=== PATIENT | female | born 1940 | race Caucasian/White ===

== ENCOUNTER 2018-01-13 21:11 | Emergency (ER) | payer BC ==
--- NOTE | 2018-01-13 21:39 | PDOC ---
History of Present Illness - General History Source: Patient Exam Limitations: No Limitations - History of Present Illness Initial Comments: 01/13/18 22:00 The patient is a 77 year old female, with a significant past medical history of HTN and RA, who presents to the emergency department with, 2 days of nausea, vomiting, and urinary frequency. As per patient, every time she goes to micturate she immediately becomes nauseous and vomits. She reports 6 episodes of emesis today and approximately 3 episodes yesterday. She took Tylenol today, with minimal relief. She has similar symptoms in the past that she has been admitted to the hospital with an unknown diagnosis. She denies recent chills, headache or dizziness. She denies recent diarrhea or constipation. She denies recent dysuria, urgency or hematuria. She denies recent chest pain or shortness of breath. Allergies: Morphine, codeine, azithromycin. Social history: Nonsmoker. Denies EtOH use and recreational drug use. <Lanny Vasquez - Last Filed: 01/13/18 22:08> <Rosa Crenshaw - Last Filed: 01/14/18 01:48> - General Chief Complaint: Nausea/Vomiting Stated Complaint: N/V/FREQUENT URINATION Time Seen by Provider: 01/13/18 21:26 Past History <Lanny Vasquez - Last Filed: 01/13/18 22:08> - Past Medical History Asthma: No Cardiac Disorders: Yes (MVP, LEFT BUBDLE BRANCH BLOCK) COPD: No Diabetes: No HTN: No Other medical history: ARTHRITIS - Suicide/Smoking/Psychosocial Hx Smoking Status: No Smoking History: Never smoked Number of Cigarettes Smoked Daily: 0 Hx Alcohol Use: No Drug/Substance Use Hx: No Substance Use Type: None <Rosa Crenshaw - Last Filed: 01/14/18 01:48> - Past Medical History Allergies/Adverse Reactions: Allergies Allergy/AdvReac Type Severity Reaction Status Date / Time morphine Allergy Verified 05/26/15 12:41 CODIENE Allergy Uncoded 05/26/15 12:41 Home Medications: Ambulatory Orders Diltiazem Cd [Cardizem Cd -] 240 mg PO DAILY 05/26/15 Methotrexate [Mexate -] 7.5 mg PO Q7D 05/26/15 predniSONE [Deltasone -] 5 mg PO DAILY 05/26/15 Levofloxacin [Levaquin] 500 mg PO DAILY #5 tablet 01/13/18 Levofloxacin [Levaquin] 500 mg PO DAILY #5 tablet 01/13/18 Ondansetron [Zofran Odt -] 4 mg SL BID #14 od.tablet 01/13/18 Review of Systems - Review of Systems Able to Perform ROS?: Yes Comments:: 01/13/18 22:08 GENERAL/CONSTITUTIONAL: No chills. No weakness. HEAD, EYES, EARS, NOSE AND THROAT: No change in vision. No ear pain or discharge. No sore throat. CARDIOVASCULAR: No chest pain or shortness of breath. RESPIRATORY: No cough, wheezing, or hemoptysis. GASTROINTESTINAL: No nausea, vomiting, diarrhea or constipation. GENITOURINARY: No dysuria, frequency, or change in urination. MUSCULOSKELETAL: No joint or muscle swelling or pain. No neck or back pain. SKIN: No rash NEUROLOGIC: No headache, vertigo, loss of consciousness, or change in strength/ sensation. ENDOCRINE: No increased thirst. No abnormal weight change. HEMATOLOGIC/LYMPHATIC: No anemia, easy bleeding, or history of blood clots. ALLERGIC/IMMUNOLOGIC: No hives or skin allergy. All Other Systems: Reviewed and Negative <Lanny Vasquez - Last Filed: 01/13/18 22:08> *Physical Exam - Vital Signs Last Vital Signs Temp Pulse Resp BP Pulse Ox 98.1 F 96 H 16 164/82 97 01/13/18 21:13 01/13/18 21:13 01/13/18 21:13 01/13/18 21:13 01/13/18 21:13 - Physical Exam Comments: 01/13/18 22:08 +GENERAL: Warm to touch. Awake, alert, and fully oriented, in no acute distress HEAD: No signs of trauma EYES: PERRLA, EOMI, sclera anicteric, conjunctiva clear ENT: Auricles normal inspection, hearing grossly normal, nares patent, oropharynx clear without exudates. Moist mucosa NECK: Normal ROM, supple, no lymphadenopathy, JVD, or masses LUNGS: Breath sounds equal, clear to auscultation bilaterally. No wheezes, and no crackles +HEART: Tachycardic. Regular rhythm, normal S1 and S2, no murmurs, rubs or gallops ABDOMEN: Soft, nontender, normoactive bowel sounds. No guarding, no rebound. No masses EXTREMITIES: Normal range of motion, no edema. No clubbing or cyanosis. No cords, erythema, or tenderness NEUROLOGICAL: Cranial nerves II through XII grossly intact. Normal speech, normal gait SKIN: Warm, Dry, normal turgor, no rashes or lesions noted. <Lanny Vasquez - Last Filed: 01/13/18 22:08> - Vital Signs Last Vital Signs Temp Pulse Resp BP Pulse Ox 98.1 F 96 H 16 164/82 97 01/13/18 21:13 01/13/18 21:13 01/13/18 21:13 01/13/18 21:13 01/13/18 21:13 <Rosa Crenshaw - Last Filed: 01/14/18 01:48> ED Treatment Course - ADDITIONAL ORDERS Additional order review: Laboratory Results 01/13/18 21:24 Urine Color Yellow Urine Appearance Clear Urine pH 5.5 Ur Specific Galliano >= 1.030 H Urine Protein 2+ H Urine Glucose (UA) Negative Urine Ketones 2+ H Urine Blood 2+ H Urine Nitrite Negative Urine Bilirubin 1+ H Urine Urobilinogen 0.2 Ur Leukocyte Esterase Negative <Lanny Vasquez - Last Filed: 01/13/18 22:08> - LABORATORY CBC & Chemistry Diagram: 01/13/18 22:00 01/13/18 22:00 <Rosa Crenshaw - Last Filed: 01/14/18 01:48> Medical Decision Making - Medical Decision Making 01/13/18 22:09 Pt has 2+ ketones in her urine. She will be hydrated. 01/13/18 22:10 Pt has urine 01/13/18 22:20 Pt has no WBC count. 01/13/18 23:32 Patient Name: TRISHA TIERNEY THIS IS A PRELIMINARY REPORT FROM [facility] DATE OF SERVICE: 2018-01-13 22:46:26 IMAGES: 192 EXAM: CT abdomen and pelvis without contrast HISTORY: UTI and vomiting COMPARISON: None. FINDINGS: Lung bases are clear. The visualized cardiac chambers are normal size and configuration. Normal unenhanced liver, gallbladder, pancreas, spleen, adrenal glands and kidneys. A small hiatal hernia is noted. The abdominal small and large bowel are normal. There is no aortic aneurysm. There is no significant retroperitoneal lymphadenopathy. The pelvic small and large bowel are normal. The appendix is normal. The uterus and adnexal structures are normal. Urinary bladder is unremarkable. There is no pelvic free fluid. No discrete pelvic lymphadenopathy is identified. IMPRESSION: No localizing signs for acute pathology 01/14/18 01:47 Pt is feeling better after hydration. She will be discharged home with levaquin for her UTI (clinically diagnosed, as pt has fewquency, urgency, and nausea, and dysuria) Pt will follow with her PMD. <Rosa Crenshaw - Last Filed: 01/14/18 01:48> *DC/Admit/Observation/Transfer - Attestations Scribe Attestion: 01/13/18 22:09 Documentation prepared by Lanny Vasquez, acting as medical insurance biller for Rosa Crenshaw MD. <Lanny Vasquez - Last Filed: 01/13/18 22:08> - Discharge Dispostion Decision to Admit order: No <Rosa Crenshaw - Last Filed: 01/14/18 01:48> Diagnosis at time of Disposition: UTI (urinary tract infection), Nausea, Dehydration - Discharge Dispostion Disposition: HOME Condition at time of disposition: Stable - Prescriptions Prescriptions: Levofloxacin [Levaquin] 500 mg PO DAILY #5 tablet Levofloxacin [Levaquin] 500 mg PO DAILY #5 tablet Ondansetron [Zofran Odt -] 4 mg SL BID #14 od.tablet - Referrals Referrals: ON STAFF,NOT [Primary Care Provider] - - Patient Instructions Printed Discharge Instructions: DI for Dehydration -- Adult, DI for Urinary Tract Infection (UTI), DI for Nausea -- Adult - Post Discharge Activity
[2018-01-13 21:45] VITALS: BP 164/82; PULSE 96; TEMP 98.1; BMI 25.7
[2018-01-13 21:51] LABS: PH,URINE 5.5 (4.5-8); URINE APPEARANCE Clear; URINE BILIRUBIN 1+ (NEGATIVE); URINE COLOR Yellow; URINE GLUCOSE (UA) Negative (NEGATIVE); URINE KETONE 2+ (NEGATIVE); URINE LEUK ESTERASE Negative (NEGATIVE); URINE NITRITE Negative (NEGATIVE); URINE UROBILINOGEN 0.2 (0.2-1.0)
[2018-01-13 21:52] LABS: URINE PROTEIN 2+ (NEGATIVE)
[2018-01-13] MEDS ORDERED: SODIUM CHLORIDE 0.9% 500 ML INFUS.BAG IV ONE (21:54)
[2018-01-13] MEDS ORDERED: ACETAMINOPHEN 1000 MG/100 ML VIAL (NON FORMULARY) IVPB ONE (21:55)
[2018-01-13] MEDS ORDERED: FAMOTIDINE 20 MG/50 ML IVPB 20 MG/50 ML MG IVPB ONE ×2 (21:58→22:00)
[2018-01-13] MEDS ORDERED: ACETAMINOPHEN INJECTION 100 ML IVPB ONE (21:58)
[2018-01-13 22:04] LABS: CALCIUM OXALATE CRYSTALS FEW /hpf (NONE SEEN); EPI CELLS FEW /HPF; URINE BACTERIA FEW /hpf (NEGATIVE); URINE WBC 0-2 (0-5)
[2018-01-13 22:16] LABS: BASO % 0.6 % (0-2.0); EOS % 0.2 % (0-4.5); HEMATOCRIT 42.9 % (32.4-45.2); HEMOGLOBIN 14.3 GM/dl (10.7-15.3); LYMPH % 13.6 % (8-40); MCH 31.3 pg (25.7-33.7); MCHC 33.2 g/dl (32.0-36.0); MEAN CELL VOLUME 94.2 fl (80-96); MEAN PLT VOLUME 7.4 fl (7.5-11.1); MONO % 6.3 % (3.8-10.2); NEUT % 79.3 % (42.8-82.8); PLATELET COUNT 337 K/MM3 (134-434); RBC 4.56 M/mm3 (3.60-5.2); RDW 13.3 % (11.6-15.6); WHITE BLOOD COUNT 7.7 K/mm3 (4.0-10.8)
[2018-01-13 22:33] LABS: ALK PHOS 79 U/L (32-92); ANION GAP 12 MMOL/L (8-16); BILIRUBIN,TOTAL 0.8 mg/dl (0.2-1.0); BLOOD UREA NITROGEN 17 mg/dl (7-18); CALCIUM 10.1 mg/dl (8.4-10.2); CHLORIDE 101 mmol/L (98-107); CO2 26 mmol/L (22-28); CREATININE 0.8 mg/dl (0.6-1.3); GLUCOSE,RANDOM 134 mg/dl (74-106); POTASSIUM 3.6 mmol/L (3.5-5.1); SGOT/AST 20 U/L (10-42); SGPT/ALT 17 U/L (10-40); SODIUM 139 mmol/L (136-145); TOT PROT 7.1 g/dl (6.4-8.3)
[2018-01-13] MEDS ORDERED: DEXTROSE 5%-NORMAL SALINE 500 ML IV ONE (22:41)
[2018-01-13] MEDS ORDERED: ONDANSETRON 4 MG/2 ML VIAL IVPB ONE (23:29)
[2018-01-13] MEDS ORDERED: ONDANSETRON 4 MG/2 ML VIAL ONE (23:33)
== END 2018-01-13 23:45 | disposition home or self-care (01) ==
LOC: FER 21:11
PROC: 3E033NZ Introduction of Analgesics, Hypnotics, Sedatives into Peripheral Vein, Percutaneous Approach (ICD-10-PCS; principal; 2018-01-13)
PROC: 3E033GC Introduction of Other Therapeutic Substance into Peripheral Vein, Percutaneous Approach (ICD-10-PCS; 2018-01-13)
PROC: 3E0337Z Introduction of Electrolytic and Water Balance Substance into Peripheral Vein, Percutaneous Approach (ICD-10-PCS; 2018-01-13)
DX: N39.0 Urinary tract infection, site not specified (principal); R11.0 Nausea; E86.0 Dehydration; I10 Essential (primary) hypertension; M06.9 Rheumatoid arthritis, unspecified
CPT/HCPCS: 36415; 74176; 80053; 81003; 81015; 85025; 87086; 96361; 96365; 96367; 96375; 99283-25; J0131

== ENCOUNTER 2018-11-27 14:32 | Emergency (ER) | payer BC ==
[2018-11-27 14:38] VITALS: TEMP 98.2; BMI 23.9
[2018-11-27] MEDS ORDERED: ONDANSETRON 4 MG/2 ML VIAL IVPUSH ONE (15:05)
[2018-11-27] MEDS ORDERED: ONDANSETRON 4 MG/2 ML VIAL ONE (15:13)
[2018-11-27] MEDS ORDERED: SODIUM CHLORIDE 0.9% 500 ML INFUS.BAG IV ONE (15:14)
--- NOTE | 2018-11-27 15:15 | PDOC ---
History of Present Illness - General Chief Complaint: Blood Pressure Problem Stated Complaint: HTN Time Seen by Provider: 11/27/18 14:42 History Source: Patient - History of Present Illness Initial Comments: 11/27/18 15:15 78F with pmh of HTN, HLD and arthtitis presents to the ED with nausea/vomiting since waking up yesterday. She checked her BP this morning and saw that it was elevated in the 200's systolic (usual BP is 130/70) Takes Cardizem at home. And daily Aleve for her arthritis. Complains of some mild headache. No vomiting today but persistent nausea with heartburn like pain. Denies dizziness, chill, fever, hematemesis, chest pain, diarrhea. Past History - Past Medical History Allergies/Adverse Reactions: Allergies Allergy/AdvReac Type Severity Reaction Status Date / Time morphine Allergy Verified 11/27/18 14:33 CODIENE Allergy Uncoded 11/27/18 14:33 Home Medications: Ambulatory Orders Diltiazem Cd [Cardizem Cd -] 240 mg PO DAILY 05/26/15 Duloxetine HCl [Cymbalta] 30 mg PO DAILY 11/27/18 Ondansetron [Zofran *Odt*] 8 mg SL BID #10 od.tablet 11/27/18 Asthma: No Cardiac Disorders: Yes (MVP, LEFT BUBDLE BRANCH BLOCK) COPD: No Diabetes: No HTN: No - Suicide/Smoking/Psychosocial Hx Smoking Status: No Smoking History: Never smoked Number of Cigarettes Smoked Daily: 0 Hx Alcohol Use: No Drug/Substance Use Hx: No Substance Use Type: None Review of Systems - Review of Systems Able to Perform ROS?: Yes Is the patient limited Bengali proficient: No Constitutional: No: Symptoms Reported HEENTM: No: Symptoms Reported Respiratory: No: Symptoms reported Cardiac (ROS): No: Symptoms Reported ABD/GI: Yes: See HPI : No: Symptoms Reported Musculoskeletal: No: Symptoms Reported Integumentary: No: Symptoms Reported All Other Systems: Reviewed and Negative *Physical Exam - Vital Signs Last Vital Signs Temp Pulse Resp BP Pulse Ox 98.2 F 101 H 17 186/94 H 97 11/27/18 14:33 11/27/18 14:33 11/27/18 14:33 11/27/18 14:33 11/27/18 14:33 - Physical Exam General Appearance: Yes: Nourished, Appropriately Dressed. No: Apparent Distress HEENT: positive: EOMI, YARELY, Normal ENT Inspection Respiratory/Chest: positive: Lungs Clear, Normal Breath Sounds. negative: Chest Tender, Respiratory Distress Cardiovascular: positive: Regular Rhythm, Regular Rate, S1, S2 Gastrointestinal/Abdominal: positive: Normal Bowel Sounds, Tender (mild periumbilical tenderness), Flat, Soft. negative: Guarding, Rebound Integumentary: positive: Normal Color, Dry, Warm Neurologic: positive: Fully Oriented, Alert, Normal Mood/Affect, Normal Response , Motor Strength 09/02 ED Treatment Course - LABORATORY CBC & Chemistry Diagram: 11/27/18 15:10 11/27/18 15:10 - RADIOLOGY Radiology Studies Ordered: Category Date Time Status HEAD CT WITHOUT CONTRAST [CT] Stat CT Scan 11/27/18 15:14 Ordered Medical Decision Making - Medical Decision Making 11/27/18 15:24 78f with nausea/vomiting yesterday, nausea only today with hypertension. Hypertensive episode probably secondary to GI upset due to chronic NSAID use. Low suspicion for intracranial bleed (no trauma or neurological deficits) but we will obtain head CT anyway due to mild headache.. Ruling out cardiac event with ekg and trops 11/27/18 15:51 Giving NS bolus for rehydration. 11/27/18 16:33 Ct head negative, chest xray negative for acute processes. Will give patient her dose of cardizem and send her home with follow up. *DC/Admit/Observation/Transfer Diagnosis at time of Disposition: Nausea, Hypertension - Discharge Dispostion Disposition: HOME Condition at time of disposition: Stable Decision to Admit order: No - Prescriptions Prescriptions: Ondansetron [Zofran *Odt*] 8 mg SL BID #10 od.tablet - Referrals - Patient Instructions Printed Discharge Instructions: DI for High Blood Pressure, How to Monitor Your Blood Pressure at Home Additional Instructions: Follow up with your primary care physician within the week. Come back to the emergency department for any new, worsening or concerning symptoms. - Post Discharge Activity
[2018-11-27 15:28] LABS: HEMOGLOBIN 14.1 GM/dl (10.7-15.3); WHITE BLOOD COUNT 5.5 K/mm3 (4.0-10.8)
--- NOTE | 2018-11-27 15:31 | PDOC ---
Attending Attestation - Resident Resident Name: Dilip Wild - ED Attending Attestation I have performed the following: I have examined & evaluated the patient, The case was reviewed & discussed with the resident, I agree w/resident's findings & plan - HPI HPI: 11/27/18 15:26 78-year-old female with history of hypertension, chronic dyspepsia diagnosed with gastritis in the past on endoscopy maintained on PPI presents with nausea/ vomiting since yesterday. Patient was in her usual state of good health, yesterday awoke with nausea and stomach upset followed by several episodes of nonbloody nonbilious vomiting, decreased appetite, and inability to tolerate by mouth. Subsequently developed slight epigastric discomfort with GERD/heartburn typical of past gastritis flare, presents for evaluation today after she measured her blood pressure and it was elevated at home. No vomiting since last night, had a normal nonbloody bowel movement today without recent diarrhea or constipation, complaints of some frontal headache and lightheadedness in the setting of decreased by mouth intake. Denies any vision change/speech change/focal deficit, denies any chest pain/ palpitations/shortness of breath. Tolerated her last dose of diltiazem, which was last night. Denies any recent antibiotics or travel, did have two spicy meals in the 2 days proceeding her symptom onset, no sick contacts. Denies any excessive alcohol intake. - Physicial Exam PE: 11/27/18 15:28 Blood pressure slightly elevated, afebrile, O2 sat normal Elderly woman lying comfortably in stretcher speaking full sentences in no acute distress No jaundice or pallor Slightly dry mucosa Heart is regular with subtle ejection murmur, lungs are clear Abdomen is soft/nontender/nondistended, no guarding or rebound, bowel sounds are normal. No CVA tenderness. No edema, neurologically intact - Medical Decision Making 11/27/18 15:29 78-year-old female with history of hypertension and gastritis presents with dyspepsia/vomiting for 2 days in the setting of spicy meals, elevated blood pressure today. Possible gastritis flare secondary to spicy food intake, elevated blood pressure with slight headache but otherwise no red flags on history or physical exam to suggest end organ injury. Check labs, including troponin and lipase CT head, chest x-ray IV fluid rehydration, antiemetic Reassess 07/30/19 16:47 asx, feels well, no cp. labs wnl including trop. ct head normal, cxr with poor inspiration resulting in slightly wider mediastinum but pt without cardiopulmonary complaints or pain. nausea resolved, tolerating PO. BP improved, neuro intact. 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
[2018-11-27 15:34] LABS: BASO % 0.5 % (0-2.0); EOS % 0.7 % (0-4.5); HEMATOCRIT 41.2 % (32.4-45.2); LYMPH % 18.9 % (8-40); MCH 31.6 pg (25.7-33.7); MCHC 34.2 g/dl (32.0-36.0); MEAN CELL VOLUME 92.5 fl (80-96); MEAN PLT VOLUME 7.4 fl (7.5-11.1); MONO % 7.6 % (3.8-10.2); NEUT % 72.3 % (42.8-82.8); PLATELET COUNT 278 K/MM3 (134-434); RBC 4.46 M/mm3 (3.60-5.2); RDW 12.5 % (11.6-15.6)
[2018-11-27 15:38] LABS: ALBUMIN 3.8 g/dl (3.4-5.0); BILIRUBIN,TOTAL 0.8 mg/dl (0.2-1); CALCIUM 9.2 mg/dl (8.5-10); CREATININE 0.7 mg/dl (0.55-1.3); POTASSIUM 3.6 mmol/L (3.5-5.1); TOT PROT 7.3 g/dl (6.4-8.2)
[2018-11-27] MEDS ORDERED: ONDANSETRON *ODT* 4 MG TABLET SL ONE (16:41)
[2018-11-27] MEDS ORDERED: ONDANSETRON *ODT* 4 MG TABLET ONE (16:42)
[2018-11-27 16:57] VITALS: BP 158/78; PULSE 83
--- NOTE | 2018-11-28 11:49 | EKG ---
Test Reason : Blood Pressure : / mmHG Vent. Rate : 090 BPM Atrial Rate : 090 BPM P-R Int : 192 ms QRS Dur : 156 ms QT Int : 432 ms P-R-T Axes : 056 -71 091 degrees QTc Int : 528 ms NORMAL SINUS RHYTHM LEFT AXIS DEVIATION LEFT VENTRICULAR HYPERTROPHY WITH QRS WIDENING AND REPOLARIZATION ABNORMALITY CANNOT RULE OUT SEPTAL INFARCT , AGE UNDETERMINED ABNORMAL ECG WHEN COMPARED WITH ECG OF 04-NOV-2007 13:32, LEFT BUNDLE BRANCH BLOCK IS NO LONGER PRESENT MINIMAL CRITERIA FOR SEPTAL INFARCT ARE NOW PRESENT Confirmed by CHRISTIN ROY, CHELLE ([id number]) on 11/28/2018 11:49:07 AM Referred By: DR LANE Confirmed By:CHELLE WALLER MD
== END 2018-11-27 17:05 | disposition home or self-care (01) ==
LOC: FER 14:32
PROC: 3E033GC Introduction of Other Therapeutic Substance into Peripheral Vein, Percutaneous Approach (ICD-10-PCS; principal; 2018-11-27)
PROC: 3E0337Z Introduction of Electrolytic and Water Balance Substance into Peripheral Vein, Percutaneous Approach (ICD-10-PCS; 2018-11-27)
DX: R11.0 Nausea (principal); I10 Essential (primary) hypertension
CPT/HCPCS: 36415; 70450-TC; 71045-TC-FY; 80053; 83690; 84484; 85025; 93005; 96361; 96374; 99284-25; Q0162

== ENCOUNTER 2022-09-24 14:52 | Emergency (ER) | payer BC ==
[2022-09-24 14:58] VITALS: BP 168/79; PULSE 96; RESP 18; TEMP 98.3; BMI 23.0
[2022-09-24] MEDS ORDERED: ACETAMINOPHEN 500 MG TABLET (FP) PO ONE (15:52)
[2022-09-24] MEDS ORDERED: ACETAMINOPHEN 500 MG TABLET (FP) ONE (15:59)
== END 2022-09-24 19:27 | disposition home or self-care (01) ==
LOC: JERFT 14:52 → JER 14:52 → JERFT 19:27
DX: M71.21 Synovial cyst of popliteal space [Baker], right knee (principal)
CPT/HCPCS: 93971-TC; 99284-25

== ENCOUNTER 2022-10-02 11:04 | Emergency (ER) | payer BC ==
[2022-10-02 11:12] VITALS: BMI 23.0
[2022-10-02] MEDS ORDERED: ACETAMINOPHEN 500 MG TABLET (FP) PO ONE (12:15)
[2022-10-02 13:06] LABS: EPI CELLS 14 /uL (0-25.1); HYALINE CASTS 1 /uL (0-3.1); URINE APPEARANCE CLEAR; URINE BACTERIA 28 /uL (0-1359); URINE BILIRUBIN NEGATIVE (NEGATIVE); URINE COLOR YELLOW; URINE GLUCOSE (UA) NEGATIVE (NEGATIVE); URINE KETONE NEGATIVE (NEGATIVE); URINE LEUK ESTERASE 1+ (NEGATIVE); URINE NITRITE NEGATIVE (NEGATIVE); URINE PROTEIN TRACE (NEGATIVE); URINE RBC 19 /uL (0-23.9); URINE UROBILINOGEN 0.2 mg/dL (0.2-1.0); URINE WBC 28 /uL (0-25.8)
[2022-10-02 13:55] LABS: BASO % 0.9 % (0-2.0); EOS % 2.4 % (0-4.5); HEMATOCRIT 36.2 % (32.4-45.2); HEMOGLOBIN 12.7 GM/dL (10.7-15.3); LYMPH % 21.7 % (8-40); MCH 32.2 pg (25.7-33.7); MCHC 35.1 g/dl (32.0-36.0); MEAN CELL VOLUME 91.8 fl (80-96); MEAN PLT VOLUME 7.4 fl (7.5-11.1); MONO % 9.4 % (3.8-10.2); NEUT % 65.6 % (42.8-82.8); PLATELET COUNT 237 10^3/uL (134-434); RBC 3.95 M/mm3 (3.60-5.2); RDW 13.4 % (11.6-15.6); WHITE BLOOD COUNT 5.9 K/mm3 (4.0-10.0)
[2022-10-02 14:01] LABS: POTASSIUM 4.3 mmol/L (3.5-5.1)
[2022-10-02 14:04] LABS: ALBUMIN 3.4 g/dl (3.4-5.0); BLOOD UREA NITROGEN 19.1 mg/dL (7-18)
[2022-10-02 14:07] LABS: CREATININE 0.8 mg/dL (0.55-1.3)
[2022-10-02 14:08] LABS: TOT PROT 6.8 g/dl (6.4-8.2)
[2022-10-02 14:09] LABS: BILIRUBIN,TOTAL 0.3 mg/dL (0.2-1)
[2022-10-02 15:31] VITALS: BP 145/80; PULSE 76; RESP 18; TEMP 98.1
== END 2022-10-02 15:36 | disposition home or self-care (01) ==
LOC: JER 11:04 → JERFT 11:04 → JER 15:36
DX: M79.604 Pain in right leg (principal); M54.50 Low back pain, unspecified; R10.31 Right lower quadrant pain; N39.0 Urinary tract infection, site not specified; R91.1 Solitary pulmonary nodule; N28.1 Cyst of kidney, acquired; M48.54XA Collapsed vertebra, not elsewhere classified, thoracic region, initial encounter for fracture
CPT/HCPCS: 36415; 74177-TC; 80053; 81003; 85025; 87086; 87186; 93005; 93010; 99285-25; Q9967

== ENCOUNTER 2023-10-14 18:47 | Observation (INO) | payer BC ==
[2023-10-14 18:57] VITALS: BMI 24.7
[2023-10-14 19:57] LABS: BASO % 0.9 % (0-2.0); EOS % 1.9 % (0-4.5); HEMATOCRIT 40.8 % (32.4-45.2); HEMOGLOBIN 13.6 GM/dL (10.7-15.3); LYMPH % 21.7 % (8-40); MCH 31.2 pg (25.7-33.7); MCHC 33.3 g/dl (32.0-36.0); MEAN CELL VOLUME 93.8 fl (80-96); MEAN PLT VOLUME 6.7 fl (7.5-11.1); MONO % 8.7 % (3.8-10.2); NEUT % 66.8 % (42.8-82.8); PLATELET COUNT 292 10^3/uL (134-434); RBC 4.35 M/mm3 (3.60-5.2); RDW 13.9 % (11.6-15.6); WHITE BLOOD COUNT 6.5 K/mm3 (4.0-10.0)
[2023-10-14 20:15] LABS: POTASSIUM 4.2 mmol/L (3.5-5.1)
[2023-10-14 20:17] LABS: CALCIUM 9.2 mg/dL (8.5-10.1)
[2023-10-14 20:18] LABS: ALBUMIN 3.6 g/dl (3.4-5.0); BLOOD UREA NITROGEN 21.4 mg/dL (7-18)
[2023-10-14 20:21] LABS: CREATININE 0.8 mg/dL (0.55-1.3); PHOSPHOROUS 3.5 mg/dL (2.5-4.9)
[2023-10-14 20:22] LABS: BILIRUBIN,TOTAL 0.3 mg/dL (0.2-1); TOT PROT 7.2 g/dl (6.4-8.2)
[2023-10-14 20:25] LABS: PROTHROMBIN TIME (PATIENT) 11.3 SEC (9.7-13.0)
[2023-10-14 20:27] LABS: ACTIVATED PTT 29.7 SECONDS (25.2-36.5)
[2023-10-14 21:28] LABS: EPI CELLS 21 /uL (0-25.1); HYALINE CASTS 0 /uL (0-3.1); PH,URINE 5.5 (5.0-8.0); URINE APPEARANCE CLEAR; URINE BACTERIA 63 /uL (0-1359); URINE BILIRUBIN NEGATIVE (NEGATIVE); URINE COLOR YELLOW; URINE GLUCOSE (UA) NEGATIVE (NEGATIVE); URINE KETONE NEGATIVE (NEGATIVE); URINE LEUK ESTERASE TRACE (NEGATIVE); URINE NITRITE NEGATIVE (NEGATIVE); URINE PROTEIN 1+ (NEGATIVE); URINE RBC 13 /uL (0-23.9); URINE UROBILINOGEN 0.2 mg/dL (0.2-1.0); URINE WBC 57 /uL (0-25.8)
[2023-10-15] MEDS: LEFLUNOMIDE 10 MG TABLET PO SCH (09:15)
[2023-10-15] MEDS: FAMOTIDINE 20 MG TABLET PO SCH (09:15)
[2023-10-15] MEDS ORDERED: ENOXAPARIN NA (PORCINE) 40 MG/0.4 ML DISP.SYRIN SQ ONE (09:16)
[2023-10-15] MEDS ORDERED: ASPIRIN 81 MG CHEWABLE TABLETS ONE (09:16)
[2023-10-15] MEDS: ENOXAPARIN NA (PORCINE) 40 MG/0.4 ML DISP.SYRIN SQ SCH (09:16)
[2023-10-15] MEDS: ASPIRIN 81 MG CHEWABLE TABLETS PO SCH (09:16)
[2023-10-15 09:42] LABS: BASO % 0.6 % (0-2.0); EOS % 2.1 % (0-4.5); HEMATOCRIT 38.8 % (32.4-45.2); LYMPH % 19.9 % (8-40); MCH 31.3 pg (25.7-33.7); MCHC 33.5 g/dl (32.0-36.0); MEAN CELL VOLUME 93.4 fl (80-96); MONO % 7.4 % (3.8-10.2); PLATELET COUNT 280 10^3/uL (134-434); RBC 4.15 M/mm3 (3.60-5.2); RDW 13.8 % (11.6-15.6); WHITE BLOOD COUNT 5.9 K/mm3 (4.0-10.0)
[2023-10-15] MEDS ORDERED: FAMOTIDINE 20 MG TABLET PO SCH (10:00)
[2023-10-15] MEDS ORDERED: HYDROCHLOROTHIAZIDE 12.5 MG CAPSULE (FP) PO SCH (10:00)
[2023-10-15 10:06] LABS: POTASSIUM 3.6 mmol/L (3.5-5.1)
[2023-10-15 10:11] LABS: CALCIUM 8.8 mg/dL (8.5-10.1)
[2023-10-15 10:12] LABS: MAGNESIUM 1.9 mg/dL (1.8-2.4)
[2023-10-15 10:13] LABS: CREATININE 0.8 mg/dL (0.55-1.3)
[2023-10-15 10:14] LABS: ALBUMIN 3.3 g/dl (3.4-5.0); BLOOD UREA NITROGEN 15.4 mg/dL (7-18)
[2023-10-15 10:15] LABS: TOT PROT 6.5 g/dl (6.4-8.2)
[2023-10-15] MEDS ORDERED: LOSARTAN POTASSIUM 50 MG TABLET PO SCH ×2 (10:15→22:00)
[2023-10-15 10:17] LABS: PHOSPHOROUS 3.3 mg/dL (2.5-4.9)
[2023-10-15 10:18] LABS: BILIRUBIN,TOTAL 0.5 mg/dL (0.2-1)
[2023-10-15] MEDS: DULoxetine HCL 30 MG CAPSULE.DR PO SCH (10:23)
[2023-10-15] MEDS: LOSARTAN POTASSIUM 25 MG TABLET PO SCH (10:24)
[2023-10-15] MEDS: ROSUVASTATIN CA 20 MG TABLET PO SCH (21:52)
[2023-10-16 08:39] LABS: HEMATOCRIT 37.9 % (32.4-45.2); HEMOGLOBIN 12.6 GM/dL (10.7-15.3); MCH 31.6 pg (25.7-33.7); MCHC 33.3 g/dl (32.0-36.0); MEAN PLT VOLUME 7.2 fl (7.5-11.1); PLATELET COUNT 263 10^3/uL (134-434); RBC 3.99 M/mm3 (3.60-5.2); RDW 13.4 % (11.6-15.6); WHITE BLOOD COUNT 5.4 K/mm3 (4.0-10.0)
[2023-10-16 09:11] LABS: POTASSIUM 3.9 mmol/L (3.5-5.1)
[2023-10-16 09:16] LABS: CALCIUM 8.9 mg/dL (8.5-10.1)
[2023-10-16 09:18] LABS: ALBUMIN 3.1 g/dl (3.4-5.0); BLOOD UREA NITROGEN 22.8 mg/dL (7-18); MAGNESIUM 1.9 mg/dL (1.8-2.4)
[2023-10-16 09:20] LABS: CREATININE 0.8 mg/dL (0.55-1.3); PHOSPHOROUS 3.9 mg/dL (2.5-4.9)
[2023-10-16 09:22] LABS: BILIRUBIN,TOTAL 0.4 mg/dL (0.2-1); TOT PROT 6.1 g/dl (6.4-8.2)
[2023-10-16] MEDS: REGADENOSON 0.4 MG/5 ML PRE-FILLED SYRINGE IVPUSH ONE (10:48)
[2023-10-16 15:03] VITALS: BP 126/61; PULSE 71; RESP 19; TEMP 98.4
== END 2023-10-16 16:29 | disposition home or self-care (01) ==
LOC: JER 18:47 → JERBED 23:12 → J4S 10-15 10:06
PROVIDERS: ADMIT Internal Medicine; ATTEND Internal Medicine
PROC: 3E023GC Introduction of Other Therapeutic Substance into Muscle, Percutaneous Approach (ICD-10-PCS; principal; 2023-10-14)
PROC: 3E033GC Introduction of Other Therapeutic Substance into Peripheral Vein, Percutaneous Approach (ICD-10-PCS; 2023-10-14)
DX: I16.0 Hypertensive urgency (principal); R07.89 Other chest pain; R19.7 Diarrhea, unspecified; A08.8 Other specified intestinal infections; K21.9 Gastro-esophageal reflux disease without esophagitis; R00.2 Palpitations; K29.70 Gastritis, unspecified, without bleeding; I34.0 Nonrheumatic mitral (valve) insufficiency; M71.21 Synovial cyst of popliteal space [Baker], right knee; Z90.49 Acquired absence of other specified parts of digestive tract; I44.7 Left bundle-branch block, unspecified; R79.9 Abnormal finding of blood chemistry, unspecified
CPT/HCPCS: 0241U-QW; 36415; 71046-TC-FY; 71275-TC; 78452-TC; 80053; 80061; 81003; 83036; 83735; 83880; 84100; 84439; 84443; 84484; 85025; 85027; 85379; 85610; 85730; 87086; 87186; 93005; 93010; 93017; 93306-TC; 96372; 96374; 99285-25; A9502; G0378; J2785; Q9967

== ENCOUNTER 2024-10-07 10:42 | Emergency (ER) | payer BC ==
[2024-10-07 10:49] VITALS: BP 131/67; PULSE 87; RESP 18; TEMP 98.6; BMI 23.3
[2024-10-07] MEDS: LIDOCAINE 5% TOPICAL PATCH TP ONE (12:12)
[2024-10-07] MEDS: ACETAMINOPHEN 500 MG TABLET (FP) PO ONE (12:12)
[2024-10-07] MEDS ORDERED: LIDOCAINE PATCH REMOVAL MC ONE (22:00)
== END 2024-10-07 12:33 | disposition home or self-care (01) ==
LOC: FER 10:42
DX: M54.42 Lumbago with sciatica, left side (principal)
CPT/HCPCS: 99283-25